=== PATIENT | male | born 1955 | race Caucasian/White ===

== ENCOUNTER 2019-05-20 23:51 | Inpatient (IN) ==
--- NOTE | 2019-05-21 00:22 | ERNOTE ---
Trauma/Assault HPI - General Stated Complaint: lt leg pain/fall Time Seen by Provider: 05/21/19 00:17 Source: patient Exam Limitations: no limitations - Immun/Allergies/Home Medications Immunizations: IMMUNIZATION HX Immunizations Up to Date Yes History of Influenza Vaccine No Allergies/Adverse Reactions: Allergies No Known Allergies Allergy (Verified 05/21/19 00:02) Home Medications: HOME MEDICATIONS aspirin 81 mg tablet,delayed release 81 mg PO DAILY 05/01/18 [Last Taken 09/09/18] ferrous sulfate 325 mg (65 mg iron) tablet 325 mg PO BID 08/24/18 [Last Taken 09/13/18] diflunisal 500 mg tablet 500 mg PO TID #270 tab 02/08/19 [Last Taken Unknown] lisinopril 40 mg tablet 40 mg PO DAILY #90 tab 02/08/19 [Last Taken Unknown] pravastatin 80 mg tablet 80 mg PO HS #90 tab 02/08/19 [Last Taken Unknown] hydrocodone 5 mg-acetaminophen 325 mg tablet 2 tab PO BID PRN #120 tab 05/18/19 [Last Taken Unknown] Omeprazole 40 mg PO DAILY 05/21/19 [Last Taken Unknown] - History of Present Illness Narrative: Patient states he was using his walker with a laundry basket on it and it got away from him he fell on his left side and has pain in the left lateral thigh/hip area. He has not been able to bear weight for more than stand and pivot. Location Occurred: Reports: home Pain Location: Reports: lower extremity Method of Injury: Reports: fall Severity: moderate, severe Modifying Factors - (Improves): Reports: rest Modifying Factors - (Worsens): Reports: movement Loss of Consciousness: Reports: no loss of consciousness Review of Systems - Review of Systems Constitutional: Absent: recent illness ENT: Absent: nose congestion, nasal drainage Respiratory: Absent: shortness of breath Cardiology: Absent: chest pain Gastrointestinal/Abdominal: Absent: nausea, vomiting Genitourinary: Absent: dysuria Musculoskeletal: Present: back pain, muscle pain, muscle stiffness - All chronic for him Skin: Absent: rash Neurological: Present: numbness - Left leg and foot some is chronic for him due to his hereditary spastic paraplegia and some is more recent due to his spinal stenosis Medical History (Last Reviewed 05/21/19 @ 01:17 by Salvatore Bradford DO) Lumbar stenosis (Chronic) Onset Date: 07/01/16 [facility]. MRI report-severe spinal stenosis L2-L3 (moderate to severe) and L4-L5 (mild to moderate). Hypertension (Chronic) Onset Date: Unknown Hyperlipidemia (Chronic) Onset Date: Unknown Hereditary spastic paraplegia (Chronic) Onset Date: 02/27/17 GERD (gastroesophageal reflux disease) (Chronic) Onset Date: Unknown Lives with spouse No history of alcohol use Non-tobacco user Use of cane as ambulatory aid Wears glasses Wears hearing aid in both ears Surgical History: Surgical History (Last Reviewed 05/21/19 @ 01:17 by Salvatore Bradford DO) Status post myelogram Onset Date: ~1978 History of colonoscopy Onset Date: 09/15/182005-wnl. 09/15/18 Toby-normal. Recheck 5 yrs. History of ear surgery Onset Date: ~1963 left History of surgery on arm Onset Date: Unknown Right. History of tonsillectomy Onset Date: ~1963 Family History: Family History (Last Reviewed 05/21/19 @ 01:17 by Salvatore Bradford DO) Father , age 91 Colon cancer dx age 88 Mother , age 74-heart disease Hypertension CVA (cerebral vascular accident) x2 Heart disease quad bypass Sister Cancer colon ca-dx age 70 Sister , age 57-liver disease No problems noted. Brother , age 70-multiple problems Hypertension Diabetes Brother , age 82-unsure of cause No problems noted. Brother Dementia 1 brother Alive and well 2 brothers Social History: (Last Reviewed 05/21/19 @ 01:17 by Salvatore Bradford DO) Social History: Marital status: household members: spouse number of children: 2 current occupational status: disabled current occupational exposures/hazards: No Service: No Tobacco: Smoking Status: Never smoker Alcohol: alcohol intake: never Substance Use: substance use type: does not use Dietary Habits: caffeine: Yes caffeine comment: Current every day Personal Safety: victim of physical abuse: No victim of emotional abuse: No Physical Exam - Physical Exam General Appearance: Present: wd/wn, alert, no apparent distress Head Exam: Present: normal inspection, no evidence of injury Neck: Present: normal inspection, nontender, supple Respiratory: Present: no respiratory distress, no accessory muscle use Back Exam: Present: normal inspection, normal range of motion, no vertebral tenderness Extremity Exam: Present: normal except - - Tenderness along the left lateral thigh/greater trochanter although not specific point tenderness., decreased range of motion - Right thigh. Absent: joint redness, joint swelling, extremity edema Neurological Exam: Present: alert, oriented, normal mood/affect, other - Pt has motor and sensory deficits due to his hereditary spastic parapalegia and lumbar spinal stenosis. Skin Exam: Present: normal color, warm/dry Detailed Trauma Exam Best Eye Response ([place]): (4) open spontaneously Best Verbal Response ([place]): (5) oriented Best Motor Response ([place]): (6) obeys commands [place] Total: 15 - C-Spine cleared by: Neg history & exam - T, L-Spine cleared by: Neg hx and exam Progress - Results and Orders Patient's Lab Results:: I have reviewed the patient's lab results. - Vital Signs Patient's Vital Signs:: I have reviewed the patient's vital signs. Vital Signs: Vital Signs 05/21/19 00:04 Temperature 36.5 C Pulse Rate 87 Respiratory Rate 18 Blood Pressure 166/101 H O2 Sat by Pulse Oximetry 99 - X-Ray X-Ray #1 X-Ray: hip Interpretation: Interp. by me X-ray Comments: Left surgical neck hip fracture. Compressed nonangulated. - Progress/Reassessment Chief Complaint: Fall Progress Note-Subjective: 05/21/19 01:[address] Membreno he asked for the patient be n.p.o. and admitted to medicine with an orthopedics consult. 05/21/19 01:[address] Bustos he agrees with admission. Departure Clinical Impression: Closed hip fracture Qualifiers: Encounter type: initial encounter Laterality: left Qualified Code(s): S72.002A - Fracture of unspecified part of neck of left femur, initial encounter for closed fracture - Departure Disposition: Still a patient Condition: Good Critical Care Time - Critical Care Critical Time Spent:: No
[2019-05-21] MEDS: ONDANSETRON HCL/PF 2 MG/ML VIAL IV PRN ×2 (01:33→08:14)
[2019-05-21] MEDS: MORPHINE SULFATE 2 MG/ML DISP.SYRIN IV PRN ×4 (01:36→11:14)
[2019-05-21] MEDS ORDERED: hydrALAZINE HCL 20 MG/ML VIAL IV STA (02:51)
[2019-05-21 08:48] LABS: Hematocrit 40.6 % (42.0-52.0); Mean Cell Volume 96.2 fl (78-100); Mean Corpuscular Hemoglobin 33.2 pg (27-31); Mean Corpuscular Hgb Conc 34.5 g/dl (32-36); Mean Platelet Volume 9.5 fl (8-11.3); Neutrophil # 5.1 K/mm3 (1.3-6.0); Neutrophil % 67.4 % (42-75.0); Platelet Count 220 K/mm3 (150-450); Red Blood Count 4.22 M/mm3 (4.7-6.0); Red Cell Distribution Width 12.1 % (11.5-14.0); White Blood Count 7.6 K/mm3 (4.0-10.5)
[2019-05-21 08:59] LABS: Albumin * 3.2 gm/dl (3.4-5.0); Anion Gap 13.4 mmol/L (6.8-13.8); BUN/Creatinine Ratio 10.4 (9.0-21.6); Bilirubin, Total 0.4 mg/dL (0.0-1.1); Ca. Corrected For Albumin 9.2 mg/dL (8.4-10.2); Calcium * 8.9 mg/dL (7.9-10.9); Carbon Dioxide 25.4 mmol/L (24-32.6); Potassium 3.8 mmol/L (3.4-4.6); Total Protein 6.9 gm/dL (6.2-8.2)
[2019-05-21] MEDS ORDERED: ceFAZolin SODIUM 1 GM VIAL IV PRN (09:01)
--- NOTE | 2019-05-21 09:01 | CONS ---
[facility] - General Date of Service: 05/21/19 Narrative: Mr. Christy is a 64-year-old gentleman with spastic luis-plegia who was at home carrying a laundry basket when he fell onto his left side resulting in left hip pain. He was unable to weight-bear and was seen in the emergency department which time was found to have a nondisplaced closed left femoral neck fracture. He denies any other areas of pain. he denies any previous hip pathology. He states he walks with a walker at home. His assists him and he does limited ambulating during the day. Source: patient, RN/MD Exam Limitations: no limitations - History of Present Illness Timing/Duration: 24 hours Severity: mild Modifying Factors - (Worsens): Reports: movement Modifying Factors - (Improves): Reports: immobilization Associated Symptoms: denies symptoms Allergies/Adverse Reactions: Allergies No Known Allergies Allergy (Verified 05/21/19 00:02) Home Medications: Home Medications Medication Instructions Recorded Last Taken aspirin 81 mg tablet,delayed 81 mg PO DAILY 05/01/18 05/20/19 release ferrous sulfate 325 mg (65 mg 325 mg PO BID 08/24/18 05/20/19 17:00 iron) tablet diflunisal 500 mg tablet 500 mg PO TID #270 tab 02/08/19 Unknown lisinopril 40 mg tablet 40 mg PO DAILY #90 tab 02/08/19 05/20/19 pravastatin 80 mg tablet 80 mg PO HS #90 tab 02/08/19 05/19/19 hydrocodone 5 mg-acetaminophen 325 2 tab PO BID PRN #120 tab 05/18/19 05/20/19 12:00 mg tablet Omeprazole 40 mg PO DAILY 05/21/19 05/20/19 09:00 Medications - Medications Current Medications: Current Medications Morphine Sulfate (Morphine Sulfate) 2 mg IV Q1H PRN PRN Reason: Pain Stop: 06/20/19 01:31 Last Admin: 05/21/19 08:13 Dose: 2 mg Documented by: Ondansetron HCl (Zofran) 4 mg IV Q4H PRN PRN Reason: Nausea Stop: 06/20/19 01:31 Last Admin: 05/21/19 08:14 Dose: 4 mg Documented by: Review of Systems - Review of Systems Narrative: As above Physical Examination - Exam Narrative: Left lower extremity: No lacerations or abrasions. Sensation is decreased but stable, thigh is soft, pain with any hip range of motion, is able to flex and extend his toes to his reported baseline level. Palpable dorsalis pedis pulse Vital Signs: Vital Signs - Last Taken Temp 37.3 C 05/21/19 06:18 Pulse 84 05/21/19 06:18 Resp 16 05/21/19 06:18 BP 139/73 05/21/19 06:18 Pulse Ox 97 05/21/19 06:18 O2 Oxygen Delivery Method Room Air - Results and Findings: Narrative: AP pelvis 2 views left hip: Minimally impacted valgus nondisplaced left femoral neck fracture, no other pelvic fracture or advanced arthrosis. Lab/Microbiology results last 24 hrs: Abnormal/Pending Laboratory Last 24 HRS 05/21/19 08:44 RBC 4.22 L Hct 40.6 L MCH 33.2 H Monocytes % 9.4 H - Assessments/Findings (1) Closed hip fracture Diagnosis(s): Plan is for closed reduction percutaneous fixation of the left hip. He will receive IV Ancef preoperatively and will need 6 weeks of DVT prophylaxis postoperatively. As long as he is medically sound undergo this procedure the plan is to go this morning. Consent will be obtained. Problem: Acute Qualifiers: Encounter type: initial encounter Laterality: left Qualified Code(s): S72.002A - Fracture of unspecified part of neck of left femur, initial encounter for closed fracture
--- NOTE | 2019-05-21 09:41 | HP ---
Chief Complaint - Chief Complaint Date of Service: 05/21/19 Time of Service: 08:30 Chief Complaint: Left Hip pain after fall History of Present Illness: Ayo is a 64 yo male with significant PMH of Hereditary Spastic Paraplegia, lumbar spinal stenosis, hypertension, and hyperlipidemia. He has been in his usual state of health at home when he made the error of doing the laundry. While leaning over the laundry basket he lost his balance which is not unusual for him with his chronic spastic paraplegia. He fell and landed on his left hip and immediately had severe pain and was unable to get off the floor. He was able to get to a phone and was able to get assistance after about an hour of laying on the floor. He was helped up and brought to the [facility] ER. He denies any other medical changes. He specifically denies chest pain, shortness of breath, or lightheadedness. No recent illnesses. No recent change in medication. In the ER he had hip imaging that shows minimally displaced and impacted left femoral neck fracture. Chest xray shows no acute change. He had no labs or EKG in the ER. Medical History (Last Reviewed 05/21/19 @ 06:46 by Isis Santana RN) Lumbar stenosis (Chronic) Onset Date: 07/01/16 [facility]. MRI report-severe spinal stenosis L2-L3 (moderate to severe) and L4-L5 (mild to moderate). Hypertension (Chronic) Onset Date: Unknown Hyperlipidemia (Chronic) Onset Date: Unknown Hereditary spastic paraplegia (Chronic) Onset Date: 02/27/17 GERD (gastroesophageal reflux disease) (Chronic) Onset Date: Unknown Lives with spouse No history of alcohol use Non-tobacco user Use of cane as ambulatory aid Wears glasses Wears hearing aid in both ears Surgical History: Surgical History (Last Reviewed 05/21/19 @ 06:46 by Isis Santana RN) Status post myelogram Onset Date: ~1978 History of colonoscopy Onset Date: 09/15/18 2006-wnl. 09/15/18 Toby-normal. Recheck 5 yrs. History of ear surgery Onset Date: ~1963 left History of surgery on arm Onset Date: Unknown Right. History of tonsillectomy Onset Date: ~1963 Family History: Family History (Last Reviewed 05/21/19 @ 06:46 by Isis Santana RN) Father , age 91 Colon cancer dx age 88 Mother , age 74-heart disease Hypertension CVA (cerebral vascular accident) x2 Heart disease quad bypass Sister Cancer colon ca-dx age 70 Sister , age 57-liver disease No problems noted. Brother , age 70-multiple problems Hypertension Diabetes Brother , age 82-unsure of cause No problems noted. Brother Dementia 1 brother Alive and well 2 brothers Social History: (Last Reviewed 05/21/19 @ 06:46 by Isis Santana RN) Social History: Marital status: household members: spouse number of children: 2 current occupational status: disabled current occupational exposures/hazards: No Service: No Tobacco: Smoking Status: Never smoker Alcohol: alcohol intake: never Substance Use: substance use type: does not use Dietary Habits: caffeine: Yes caffeine comment: Current every day Personal Safety: victim of physical abuse: No victim of emotional abuse: No Review Of Systems (GEN) - Review of Systems Generalized/Overall Review: Present: Weakness - chronic lower extremity weakness. Absent: Chills, Fever EENTM: Present: No Symptoms Reported Respiratory: Absent: Cough, Shortness of Breath Cardiac: Absent: Chest Pain, Edema, Palpitations, Syncope Abdominal: Absent: Nausea, Vomiting, Hematemesis, Abdominal Pain, Constipation, Diarrhea Genitourinary: Present: No Symptoms Reported Musculoskeletal: Present: Joint Pain, Back Pain - Left hip Neurological: Present: Numbness - left ankle region (chronic), Weakness Skin: Present: No Symptoms Reported Endocrine: Present: No Symptoms Reported Immunizations: IMMUNIZATION HX Immunizations Up to Date Yes History of Influenza Vaccine No Allergies/Adverse Reactions: Allergies Allergy/AdvReac Type Severity Reaction Status Date / Time No Known Allergies Allergy Verified 05/21/19 00:02 Home Medications: HOME MEDICATIONS aspirin 81 mg tablet,delayed release 81 mg PO DAILY 05/01/18 [Last Taken 05/20/19] ferrous sulfate 325 mg (65 mg iron) tablet 325 mg PO BID 08/24/18 [Last Taken 05/20/19 17:00] diflunisal 500 mg tablet 500 mg PO TID #270 tab 02/08/19 [Last Taken Unknown] lisinopril 40 mg tablet 40 mg PO DAILY #90 tab 02/08/19 [Last Taken 05/20/19] pravastatin 80 mg tablet 80 mg PO HS #90 tab 02/08/19 [Last Taken 05/19/19] hydrocodone 5 mg-acetaminophen 325 mg tablet 2 tab PO BID PRN #120 tab 05/18/19 [Last Taken 05/20/19 12:00] Omeprazole 40 mg PO DAILY 05/21/19 [Last Taken 05/20/19 09:00] Exam - Exam Vital Signs: Vital Signs - Last Taken Temp 37.3 C 05/21/19 06:18 Pulse 84 05/21/19 06:18 Resp 16 05/21/19 06:18 BP 139/73 05/21/19 06:18 Pulse Ox 97 05/21/19 06:18 Constitutional: Present: Alert, Oriented x3, Cooperative, No distress ENT Exam: Present: hearing grossly normal - with hearing aid assistance Eye Exam: bilateral eye: normal inspection Respiratory: Present: lungs clear, normal breath sounds Cardiovascular/Chest: Present: regular rate, rhythm, no murmur Peripheral Pulses: radial (R): 2+, radial (L): 2+ Abdomen: Present: Normal bowel sounds, soft, nontender, nondistended, no rebound tenderness, no hepatospenomegaly Extremity: Present: other - legs thin with mild contraction Skin Exam: Present: normal color, warm/dry, no cyanosis Lymphatic: Present: no adenopathy Appearance: Present: appropriate insight Eye contact: Present: cooperative, good eye contact, normal speech Thoughts: Present: normal thought pattern, no apparent hallucination Diagnostic Studies: Abnormal Lab Results 05/21/19 05/21/19 Range/Units 08:44 08:44 RBC 4.22 L (4.7-6.0) M/mm3 Hct 40.6 L (42.0-52.0) % MCH 33.2 H (27-31) pg Monocytes % 9.4 H (0.0-9) % ALT 18 L (19-67) U/L Albumin 3.2 L (3.4-5.0) gm/dl Laboratory Results WBC 7.6 K/mm3 (4.0-10.5) 05/21/19 08:44 RBC 4.22 M/mm3 (4.7-6.0) L 05/21/19 08:44 Hgb 14.0 gm/dL (13.5-18.0) 05/21/19 08:44 Hct 40.6 % (42.0-52.0) L 05/21/19 08:44 MCV 96.2 fl (78-100) 05/21/19 08:44 MCH 33.2 pg (27-31) H 05/21/19 08:44 MCHC 34.5 g/dl (32-36) 05/21/19 08:44 RDW 12.1 % (11.5-14.0) 05/21/19 08:44 Plt Count 220 K/mm3 (150-450) 05/21/19 08:44 MPV 9.5 fl (8-11.3) 05/21/19 08:44 Immature Gran % (Auto) 0.10 % (0.001-0.429) 05/21/19 08:44 Immature Gran # (Auto) 0.01 K/mm3 (0.000-0.0310) 05/21/19 08:44 Neutrophils % 67.4 % (42-75.0) 05/21/19 08:44 Lymphocytes % 22.3 % (20-51) 05/21/19 08:44 Monocytes % 9.4 % (0.0-9) H 05/21/19 08:44 Eosinophils % 0.4 % (0.0-3.0) 05/21/19 08:44 Basophils % 0.4 % (0.0-1.0) 05/21/19 08:44 Nucleated RBC % 0.0 k/mm3 (0-1) 05/21/19 08:44 Neutrophils # 5.1 K/mm3 (1.3-6.0) 05/21/19 08:44 Lymphocytes # 1.70 k/mm3 (1.5-3.5) 05/21/19 08:44 Monocytes # 0.7 k/mm3 (0.0-1.0) 05/21/19 08:44 Eosinophils # 0.0 k/mm3 (0.0-0.7) 05/21/19 08:44 Absolute Basophils 0.0 k/mm3 (0.0-0.1) 05/21/19 08:44 Sodium 139 mmol/L (132-142) 05/21/19 08:44 Plasma Sodium 139 mmol/L (130-142) 05/21/19 08:44 Potassium 3.8 mmol/L (3.4-4.6) 05/21/19 08:44 Chloride 104 mmol/L (97-106) 05/21/19 08:44 Carbon Dioxide 25.4 mmol/L (24-32.6) 05/21/19 08:44 Anion Gap 13.4 mmol/L (6.8-13.8) 05/21/19 08:44 BUN 10 mg/dL (6-23) 05/21/19 08:44 Creatinine 0.96 mg/dL (0.4-1.4) 05/21/19 08:44 Est GFR (Non-Af Amer) 84 mL/min (60-130) 05/21/19 08:44 BUN/Creatinine Ratio 10.4 (9.0-21.6) 05/21/19 08:44 Random Glucose 101 mg/dL (70-110) 05/21/19 08:44 Calcium 8.9 mg/dL (7.9-10.9) 05/21/19 08:44 Calcium Adj for Albumin 9.2 mg/dL (8.4-10.2) 05/21/19 08:44 Total Bilirubin 0.4 mg/dL (0.0-1.1) 05/21/19 08:44 AST 17 U/L (0-48) 05/21/19 08:44 ALT 18 U/L (19-67) L 05/21/19 08:44 Alkaline Phosphatase 53 U/L (50-170) 05/21/19 08:44 Total Protein 6.9 gm/dL (6.2-8.2) 05/21/19 08:44 Albumin 3.2 gm/dl (3.4-5.0) L 05/21/19 08:44 Assessment/Plan - Narrative Narrative: Alexis is a 64 yo male with hereditary spastic paraplegia and chronic lumbar spinal stenosis with a left femoral neck fracture following a fall. He lost his balance while leaning over the laundry basket. He has been examined for cardiovascular clearance and I see no medical reasons that would contraindicate the need for surgery. Orthopedics have been consulted by the ER and will plan on doing surgery later this morning. Patient was evaluated for pre-operative risks. Based on Revised Cardiovascular Risk Index he has a risk of 1% for cardiovascular event. I feel he is medically cleared for surgery. Due to his spastic paraplegia, he even more so than typical hip fracture patients, will ne ed physical therapy. - Assessment/Plan (1) Closed hip fracture Problem: Acute Qualifiers: Encounter type: initial encounter Laterality: left Qualified Code(s): S72.002A - Fracture of unspecified part of neck of left femur, initial encounter for closed fracture (2) Lumbar stenosis Problem: Chronic Qualifiers: Neurogenic claudication status: unspecified Qualified Code(s): M48.061 - Spinal stenosis, lumbar region without neurogenic claudication (3) Hypertension Problem: Chronic (4) Hereditary spastic paraplegia Problem: Chronic
--- NOTE | 2019-05-21 10:25 | ANES ---
Anesthesia Pre Procedure Eval Vitals/Labs: Last Vital Signs Temp 37.3 C 05/21/19 06:18 Pulse 84 05/21/19 06:18 Resp 16 05/21/19 06:18 BP 139/73 05/21/19 06:18 Pulse Ox 97 05/21/19 06:18 HOME MEDICATIONS aspirin 81 mg tablet,delayed release 81 mg PO DAILY 05/01/18 [Last Taken 05/20/19] ferrous sulfate 325 mg (65 mg iron) tablet 325 mg PO BID 08/24/18 [Last Taken 05/20/19 17:00] diflunisal 500 mg tablet 500 mg PO TID #270 tab 02/08/19 [Last Taken Unknown] lisinopril 40 mg tablet 40 mg PO DAILY #90 tab 02/08/19 [Last Taken 05/20/19] pravastatin 80 mg tablet 80 mg PO HS #90 tab 02/08/19 [Last Taken 05/19/19] hydrocodone 5 mg-acetaminophen 325 mg tablet 2 tab PO BID PRN #120 tab 05/18/19 [Last Taken 05/20/19 12:00] Omeprazole 40 mg PO DAILY 05/21/19 [Last Taken 05/20/19 09:00] Allergies/Adverse Reactions: Allergies Allergy/AdvReac Type Severity Reaction Status Date / Time No Known Allergies Allergy Verified 05/21/19 00:02 - Planned Procedure Planned Procedure: Left Hip Fracture Medication List Reviewed:: Yes Allergies Verified: Yes Medical History (Last Reviewed 05/21/19 @ 10:24 by Matias Benitez CRNA) Lumbar stenosis (Chronic) Onset Date: 07/01/16 [facility]. MRI report-severe spinal stenosis L2-L3 (moderate to severe) and L4-L5 (mild to moderate). Hypertension (Chronic) Onset Date: Unknown Hyperlipidemia (Chronic) Onset Date: Unknown Hereditary spastic paraplegia (Chronic) Onset Date: 02/27/17 GERD (gastroesophageal reflux disease) (Chronic) Onset Date: Unknown Lives with spouse No history of alcohol use Non-tobacco user Use of cane as ambulatory aid Wears glasses Wears hearing aid in both ears Surgical History (Last Reviewed 05/21/19 @ 10:24 by Matias Benitez CRNA) Status post myelogram Onset Date: ~1978 History of colonoscopy Onset Date: 09/15/182005-wnl. 09/15/18 Toby-normal. Recheck 5 yrs. History of ear surgery Onset Date: ~1963 left History of surgery on arm Onset Date: Unknown Right. History of tonsillectomy Onset Date: ~1963 Family History (Last Reviewed 05/21/19 @ 10:24 by Matias Benitez CRNA) Father , age 91 Colon cancer dx age 88 Mother , age 74-heart disease Hypertension CVA (cerebral vascular accident) x2 Heart disease quad bypass Sister Cancer colon ca-dx age 70 Sister , age 57-liver disease No problems noted. Brother , age 70-multiple problems Hypertension Diabetes Brother , age 82-unsure of cause No problems noted. Brother Dementia 1 brother Alive and well 2 brothers - Family Anesthesia History Family History:: no untoward family reactions to anesthesia, no familial bleeding tendencies, no family history of clotting disorders, no family history of premature - Airway/Neck/Teeth Within Normal Limits:: Yes Teeth Condition: missing Mallampatti Score: 2 Thyromental (T-M) distance: > 6 cm Mandibulo Hyoid distance: > 3 cm - Respiratory Respiratory Physical: lungs clear Smoking Status: Former smoker Discussed smoking cessation including day of surgery: No Sleep Apnea currently treated: No Sleep Apnea by current assessment: No Discussed Risks/Treatment of CHARITY: No - Cardiovascular Tolerate Activity: Good Heart Sounds: S1 & S2, Regular - Gastrointestinal NPO since: mn - Anesthesia Assessment and Plan ASA Class: PS, II Anesthesia Type Plan: Spinal
[2019-05-21] MEDS: NORMAL SALINE 1,000 ML IV PRN ×2 (11:20→17:28)
[2019-05-21] MEDS: RINGER'S SOLUTION,LACTATED 1,000 ML IV PRN ×2 (11:30→12:45)
[2019-05-21] MEDS ORDERED: LIDOCAINE HCL 20 ML VIAL ONE (11:35)
[2019-05-21] MEDS ORDERED: fentaNYL CITRATE/PF 50 MCG/ML AMPUL ONE (11:35)
[2019-05-21] MEDS ORDERED: ONDANSETRON HCL/PF 2 MG/ML VIAL ONE (11:35)
[2019-05-21] MEDS ORDERED: PROPOFOL VIAL IV ONE (11:35)
[2019-05-21] MEDS ORDERED: ceFAZolin SODIUM 1 GM VIAL ONE (11:42)
[2019-05-21] MEDS ORDERED: MORPHINE SULFATE 2 MG/ML DISP.SYRIN IV PRN (13:05)
[2019-05-21] MEDS ORDERED: MAGNESIUM HYDROXIDE 30 ML UDC PO PRN (13:05)
[2019-05-21] MEDS ORDERED: MAG HYDROX/ALUMINUM HYD/SIMETH 30 ML UDC PO PRN (13:05)
[2019-05-21] MEDS ORDERED: ACETAMINOPHEN 500 MG TABLET PO PRN (13:05)
[2019-05-21] MEDS ORDERED: ZOLPIDEM TARTRATE 5 MG TABLET PO PRN (13:05)
--- NOTE | 2019-05-21 13:05 | OR ---
Operative Report - Dictated Report Narrative: Date: 05/21/2019 Surgeon: Braeden Booth M.D. Juvenile Detention Officer: Rufus Roa PA-C Preoperative diagnosis: Closed left nondisplaced femoral neck fracture Postoperative diagnosis:Closed left nondisplaced femoral neck fracture Operations and procedures: 1. Percutaneous fixation left nondisplaced femoral neck fracture 2. Intraoperative interpretation of radiographs Anesthesia: Spinal Specimens: None Estimated blood loss: 50 mL Retained implants: [employer] 7.3 millimeter 32 millimeter threads cannulated screws 85, 90, 90 millimeter lengths, 2 washers Complications: None Indications for procedure: Mr. Christy is a 64-year-old gentleman who injured the left hip after ground- level fall at home. He was admitted to the hospital after being evaluated in the emergency department. Once the medical provider felt that they were stable for surgical treatment, the risks and benefits alternatives were discussed. The risks of , blood clots, bleeding, infection, nerve/tendon/blood vessel injury, malunion, nonunion, failure of implants, painful implants, arthrosis, and need for additional procedures were discussed. The extremity was marked and consent was obtained on the floor. Procedure: After marking the operative extremity on the floor, the patient was taken to the operating room. A timeout was performed. IV antibiotics consisting of Ancef were administered. A spinal anesthetic was induced by anesthesia, and the patient was then placed onto a fracture table with a well-padded perineal post. The nonoperative leg was placed in a well-padded traction boot in slight extension without any traction with an SCD on the leg. The operative leg was pl aced in a well-padded traction boot. No traction or manipulation was performed. Preliminary images were attained utilizing C-arm in both the AP and lateral views. This confirmed that we had obtained adequate visualization of the fracture as well as reduction. Next the hip was then prepped and draped in a standard sterile fashion. Next three guidewires were placed percutaneously in an inverted triangle fashion. The inferior screws placed centered on the lateral view and along the inferior neck cortex on the AP view. The 2 superior screws were placed along the anterior and posterior cortex on the lateral view and along the inferior portion of the superior cortex on the AP in order to obtain as long of screws as possible. This was done with a starting point above the level of the lesser trochanter. C-arm was utilized in order to confirm the placement and to ensure that the tips of the guidewires were not penetrating the joint. The screws were then measured, the outer cortex was drilled, and the 3 screws were placed securing them to the bone on the lateral aspect providing fixation across the fracture. C-arm was again utilized to ensure that the screws were not into the joint and that they stabilized the fracture. The 85 mm screw was placed anteriorly and the 90 mm screws were placed posteriorly and inferiorly with washers. The wounds were then thoroughly irrigated. Final images were obtained. The hip was placed through range of motion and showed no crepitance. The subcutaneous tissue with 3-0 Vicryl, and the skin was closed with suhail. Sterile dressings of Xeroform, 4 x 4, and Tegaderm were applied. All sponge, sharp, and instrument counts were correct prior to closing the wounds. The patient was then awoken and transferred to the postanesthesia care unit in stable condition.
--- NOTE | 2019-05-21 13:29 | ANES ---
Post Anesthesia Assessment - Vital Signs Vitals: Last Vital Signs Temp 37.1 C 05/21/19 10:28 Pulse 82 05/21/19 10:28 Resp 18 05/21/19 10:28 BP 130/78 05/21/19 10:28 Pulse Ox 97 05/21/19 10:28 Airway Patency: Normal - Mental Status Level Of Consciousness: Awake - Pain Level Pain Score: 0 - N/V Assessment Nausea/Vomiting Presence: None Dehydration:: No
--- NOTE | 2019-05-21 13:29 | ANES ---
Post Anesthesia Discharge - Transfer of Care Transfer of Care handoff given to nurse: Yes - Discharge from PACU Discharge from PACU when meets criteria: Yes - Discharge to ASU Discharge to ASU-no complications/pt stable: Yes
[2019-05-21] MEDS: ceFAZolin SODIUM 1 GM in DEXTROSE 5 % IN WATER 50 ML IV SCH ×4 (14:06→20:59)
[2019-05-21] MEDS: HYDROcodone/ACETAMINOPHEN 1 EACH TABLET PO PRN (19:46)
[2019-05-21] MEDS: SENNOSIDES/DOCUSATE SODIUM 1 TAB TABLET PO SCH (20:58)
[2019-05-22] MEDS: HYDROcodone/ACETAMINOPHEN 1 EACH TABLET PO PRN ×5 (01:03→18:24)
[2019-05-22] MEDS: NORMAL SALINE 1,000 ML IV PRN (01:16)
[2019-05-22] MEDS: ceFAZolin SODIUM 1 GM in DEXTROSE 5 % IN WATER 50 ML IV SCH ×2 (02:59)
[2019-05-22 05:56] LABS: Hematocrit 33.1 % (42.0-52.0); Mean Cell Volume 98.2 fl (78-100); Mean Corpuscular Hemoglobin 32.6 pg (27-31); Mean Corpuscular Hgb Conc 33.2 g/dl (32-36); Mean Platelet Volume 9.4 fl (8-11.3); Platelet Count 170 K/mm3 (150-450); Red Blood Count 3.37 M/mm3 (4.7-6.0); Red Cell Distribution Width 12.3 % (11.5-14.0); White Blood Count 5.6 K/mm3 (4.0-10.5)
[2019-05-22 06:05] LABS: Anion Gap 10.1 mmol/L (6.8-13.8); BUN/Creatinine Ratio 13.6 (9.0-21.6); Calcium * 8.4 mg/dL (7.9-10.9); Carbon Dioxide 25.8 mmol/L (24-32.6); Estimated Creat Clear 75.7; Potassium 3.9 mmol/L (3.4-4.6)
--- NOTE | 2019-05-22 08:21 | PN ---
Subjective - Date and Time Seen Date: 05/22/19 Time: 08:17 Subjective Narrative: Patient reports he is getting along well. Pain is controlled. Has no specific complaints. Was able to get up to a chair this morning and ate breakfast. Objective Objective Narrative: Patient is up in chair alert oriented cooperative exam. He is in no distress. Examination of dressings are clean dry and intact. Left lower extremity he repo rts numbness but he states that this is chronic due to his neurologic disorder. His calf is supple. Vital signs are stable. Labs reviewed hemoglobin at 11.0 g down from 14.0 g. - Vitals Vitals: Last Vital Signs Temp 37.2 C 05/22/19 07:00 Pulse 79 05/22/19 07:00 Resp 20 05/22/19 07:00 BP 136/84 05/22/19 07:00 Pulse Ox 93 05/22/19 07:00 - Abnormal Lab Findings Abnormal Lab Findings: Abnormal Lab Results 05/21/19 05/21/19 05/22/19 Range/Units 08:44 08:44 05:50 RBC 4.22 L 3.37 L (4.7-6.0) M/mm3 Hgb 11.0 L (13.5-18.0) gm/dL Hct 40.6 L 33.1 L (42.0-52.0) % MCH 33.2 H 32.6 H (27-31) pg Monocytes % 9.4 H (0.0-9) % Chloride (97-106) mmol/L ALT 18 L (19-67) U/L Albumin 3.2 L (3.4-5.0) gm/dl 05/22/19 Range/Units 05:50 RBC (4.7-6.0) M/mm3 Hgb (13.5-18.0) gm/dL Hct (42.0-52.0) % MCH (27-31) pg Monocytes % (0.0-9) % Chloride 109 H (97-106) mmol/L ALT (19-67) U/L Albumin (3.4-5.0) gm/dl - Exam Constitutional: Present: Alert, Oriented x3, Cooperative, No distress Cauti Physician Documentation - Urinary Catheter Management Urethral (Rinaldi) Date of Insertion: 05/21/19 Time of Insertion: 02:30 Assessment/Plan - Problems/Diagnosis (1) Acute blood loss anemia Problem: Acute Narrative: Vital signs are stable, patient is asymptomatic, some of this could be dilutional, will observe clinically. (2) Closed hip fracture Problem: Acute Qualifiers: Encounter type: initial encounter Laterality: left Qualified Code(s): S72.002A - Fracture of unspecified part of neck of left femur, initial encounter for closed fracture Narrative: Postop day 1 percutaneous screw fixation. At this time patient's pain is controlled. He will work with physical therapy for progressive mobility. Anticoagulation. (3) Hypertension Problem: Chronic (4) Hyperlipidemia Problem: Chronic (5) Hereditary spastic paraplegia Problem: Chronic
--- NOTE | 2019-05-22 09:38 | PN ---
Subjective - Date and Time Seen Date: 05/22/19 Time: 09:38 Subjective Narrative: He reports feeling ok this morning. He feels his pain is reasonably managed, and he gives it a 6-7. Objective - Review of Systems Generalized/Overall Review: Denies: Fever Respiratory: Denies: Shortness of Breath Cardiac: Denies: Chest Pain, Edema Abdominal: Reports: Vomiting Genitourinary Symptoms: Reports: No Symptoms Reported Musculoskeletal Complaints: Reports: Joint Pain - left hip Neurological: Reports: Numbness - left foot, baseline - Vitals Vitals: Last Vital Signs Temp 37.2 C 05/22/19 07:00 Pulse 79 05/22/19 07:00 Resp 20 05/22/19 07:00 BP 136/84 05/22/19 07:00 Pulse Ox 93 05/22/19 07:00 - Abnormal Lab Findings Abnormal Lab Findings: Abnormal Lab Results 05/22/19 05/22/19 Range/Units 05:50 05:50 RBC 3.37 L (4.7-6.0) M/mm3 Hgb 11.0 L (13.5-18.0) gm/dL Hct 33.1 L (42.0-52.0) % MCH 32.6 H (27-31) pg Chloride 109 H (97-106) mmol/L - Exam Constitutional: Present: Alert, Cooperative, No distress Respiratory: Present: lungs clear, normal breath sounds Cardiovascular/Chest: Present: regular rate, rhythm Abdomen: Present: soft. Absent: nontender Extremity: Absent: lower extremity edema Eye contact: Present: cooperative Cauti Physician Documentation - Urinary Catheter Management Urethral (Rinaldi) Date of Insertion: 05/21/19 Time of Insertion: 02:30 Assessment/Plan - Problems/Diagnosis (1) Closed hip fracture Problem: Acute Qualifiers: Encounter type: initial encounter Laterality: left Qualified Code(s): S72.002A - Fracture of unspecified part of neck of left femur, initial encounter for closed fracture Narrative: POD #1 surgical fixation of nondisplaced left femoral neck fracture. He feels like pain is appropriately controlled with norco. He was able to work with PT. He was uo to the chair this morning. He will be going to the [facility] after DC, likely Friday. (2) Acute blood loss anemia Problem: Acute Narrative: Hgb pre-op was 14.0, and was 11.0 today, which is to be expected after surgery. He does not report signs of bleeding, but had questions about the need for the blood draw. No further labs needed unless his condition changes. (3) Lumbar stenosis Problem: Chronic Qualifiers: Neurogenic claudication status: unspecified Qualified Code(s): M48.061 - Spinal stenosis, lumbar region without neurogenic claudication Narrative: He reports being established with neurology for many years. Left foot drop developed in the last few months, and led to his fall and hip fracture. No acute mgt needed this hospitalization. (4) Hypertension Problem: Chronic Narrative: BP appropriate. Continue 40 mg lisinopril. (5) Hyperlipidemia Problem: Chronic (6) Hereditary spastic paraplegia Problem: Chronic (7) GERD (gastroesophageal reflux disease) Problem: Chronic
[2019-05-22] MEDS: RIVAROXABAN 20 MG TABLET PO SCH (10:02)
[2019-05-22] MEDS: LISINOPRIL 40 MG TABLET PO SCH (10:02)
[2019-05-22] MEDS: PANTOPRAZOLE SODIUM 40 MG TABLET.EC PO SCH (10:02)
[2019-05-22] MEDS: ROSUVASTATIN CALCIUM 10 MG TABLET PO SCH (20:49)
[2019-05-22] MEDS: SENNOSIDES/DOCUSATE SODIUM 1 TAB TABLET PO SCH (20:49)
[2019-05-23] MEDS: HYDROcodone/ACETAMINOPHEN 1 EACH TABLET PO PRN ×4 (01:02→21:38)
[2019-05-23] MEDS: LISINOPRIL 40 MG TABLET PO SCH (08:04)
[2019-05-23] MEDS: PANTOPRAZOLE SODIUM 40 MG TABLET.EC PO SCH (08:04)
[2019-05-23] MEDS: RIVAROXABAN 20 MG TABLET PO SCH (08:04)
--- NOTE | 2019-05-23 11:12 | PN ---
Subjective - Date and Time Seen Date: 05/23/19 Time: 09:30 Subjective Narrative: Patient reports feeling fine this morning. No new concerns. He is ambulating with his walker. Objective - Review of Systems Generalized/Overall Review: Denies: Fever Respiratory: Denies: Shortness of Breath Cardiac: Denies: Chest Pain, Edema Abdominal: Denies: Vomiting, Constipation Genitourinary Symptoms: Reports: No Symptoms Reported Musculoskeletal Complaints: Reports: Joint Pain - left hip Neurological: Reports: Pre-existing Deficit - Left foot numbness - Vitals Vitals: Last Vital Signs Temp 37.4 C 05/23/19 07:00 Pulse 66 05/23/19 08:04 Resp 20 05/23/19 07:00 BP 145/84 05/23/19 08:04 Pulse Ox 97 05/23/19 07:00 - Exam Constitutional: Present: Alert, Cooperative, No distress Respiratory: Present: lungs clear, normal breath sounds, no respiratory distress Cardiovascular/Chest: Present: regular rate, rhythm Abdomen: Present: soft, nontender Extremity: Absent: lower extremity edema Neurologic: Present: normal mood/affect, sensory deficit - left foot Eye contact: Present: cooperative, good eye contact Cauti Physician Documentation - Urinary Catheter Management Urethral (Rinaldi) Date of Insertion: 05/21/19 Time of Insertion: 02:30 Assessment/Plan - Problems/Diagnosis (1) Closed hip fracture Problem: Acute Qualifiers: Encounter type: initial encounter Laterality: left Qualified Code(s): S72.002A - Fracture of unspecified part of neck of left femur, initial encounter for closed fracture Narrative: POD #2 surgical fixation of nondisplaced left femoral neck fracture, after a ground-level fall at home. Pain is appropriately controlled with norco, which he is using about every 7 hours. He is working with PT, and is aware of how to use the walker and his stronger right leg to ambulate. Likely DC to the [facility] tomorrow. (2) Acute blood loss anemia Problem: Acute Narrative: Hgb pre-op was 14.0, and was 11.0 05/22/19 which is to be expected after surgery. He is not significantly anemic, and further blood draws are not needed unless his condition changes. (3) Lumbar stenosis Problem: Chronic Qualifiers: Neurogenic claudication status: unspecified Qualified Code(s): M48.061 - Spinal stenosis, lumbar region without neurogenic claudication (4) Hypertension Problem: Chronic Narrative: Controlled with home 40 mg losartan. (5) Hyperlipidemia Problem: Chronic (6) Hereditary spastic paraplegia Problem: Chronic (7) GERD (gastroesophageal reflux disease) Problem: Chronic
[2019-05-23] MEDS: ROSUVASTATIN CALCIUM 10 MG TABLET PO SCH (21:38)
[2019-05-23] MEDS: SENNOSIDES/DOCUSATE SODIUM 1 TAB TABLET PO SCH (21:38)
[2019-05-24] MEDS: HYDROcodone/ACETAMINOPHEN 1 EACH TABLET PO PRN ×3 (04:14→13:45)
[2019-05-24] MEDS: PANTOPRAZOLE SODIUM 40 MG TABLET.EC PO SCH (08:06)
[2019-05-24] MEDS: RIVAROXABAN 20 MG TABLET PO SCH (08:07)
[2019-05-24] MEDS: LISINOPRIL 40 MG TABLET PO SCH (08:07)
--- NOTE | 2019-05-24 13:11 | DS ---
(1) Closed hip fracture Problem: Acute Qualifiers: Encounter type: initial encounter Laterality: left Qualified Code(s): S72.002A - Fracture of unspecified part of neck of left femur, initial encounter for closed fracture (2) Lumbar stenosis Problem: Chronic Qualifiers: Neurogenic claudication status: unspecified Qualified Code(s): M48.061 - Spinal stenosis, lumbar region without neurogenic claudication (3) Hypertension Problem: Chronic (4) Hereditary spastic paraplegia Problem: Chronic Date of Discharge:: 05/24/19 Hospital Course: Ayo is a 64 yo male with hereditary spastic paraplegia and lumbar spinal stenosis who fell at home while doing the laundry. He fractured his left hip at the femoral neck which was minimally displaced and impacted. He was preoperatively cleared by medicine and underwent Percutaneous fixation of the left nondisplaced femoral neck fracture on 05/21/19. He did well postoperatively and worked with therapy. He was doing well and ready for discharge on 05/24/19. His only concern was no bowel movement since surgery, but was given an enema prior to discharge. Procedures Performed: see notes below List Procedures: Operations and procedures: 1. Percutaneous fixation left nondisplaced femoral neck fracture 05/21/19 Results and Findings: Lab Pending Results 05/21/19 08:44: WBC 7.6, RBC 4.22 L, Hgb 14.0, Hct 40.6 L, MCV 96.2, MCH 33.2 H, MCHC 34.5, RDW 12.1, Plt Count 220, MPV 9.5, Immature Gran % (Auto) 0.10, Immature Gran # (Auto) 0.01, Neutrophils % 67.4, Lymphocytes % 22.3, Monocytes % 9.4 H, Eosinophils % 0.4, Basophils % 0.4, Nucleated RBC % 0.0, Neutrophils # 5.1, Lymphocytes # 1.70, Monocytes # 0.7, Eosinophils # 0.0, Absolute Basophils 0.0 05/21/19 08:44: Sodium 139, Plasma Sodium 139, Potassium 3.8, Chloride 104, Carbon Dioxide 25.4, Anion Gap 13.4, BUN 10, Creatinine 0.96, Est GFR (Non-Af Amer) 84, BUN/Creatinine Ratio 10.4, Random Glucose 101, Calcium 8.9, Calcium Adj for Albumin 9.2, Total Bilirubin 0.4, AST 17, ALT 18 L, Alkaline Phosphatase 53, Total Protein 6.9, Albumin 3.2 L 05/22/19 05:50: WBC 5.6 D, RBC 3.37 L, Hgb 11.0 L, Hct 33.1 L, MCV 98.2, MCH 32.6 H, MCHC 33.2, RDW 12.3, Plt Count 170, MPV 9.4 05/22/19 05:50: Sodium 141, Plasma Sodium 141, Potassium 3.9, Chloride 109 H, Carbon Dioxide 25.8, Anion Gap 10.1, BUN 12, Creatinine 0.88, Est GFR (Non-Af Amer) 93, BUN/Creatinine Ratio 13.6, Random Glucose 98, Calcium 8.4 Discharge Location: [facility] [place] Disposition: SNF Condition: Good Level of Care: SNF Discharge Activity: Activity as tolerated Discharge Diet: General/regular food Halfway Therapy: Physical Therapy, Occupation Therapy Referrals: Braeden Booth MD [Staff Physician] - 06/10/19 2:30 pm Problem Oriented Discharge Instructions to Patient/Family: Hip Fracture Additional Patient Instructions (free text): Follow up at Orthopedics Dr Booth's office on June 09 at 2:30pm. Going to [facility] [place] [facility], please fax discharge orders. Instructions: Keep incision covered with dry gauze and tape. Keep dressing dry. PT and OT to evaluate and treat. 6 weeks DVT prophylaxis. Prescriptions (Any new or edited meds): HYDROcodone/ACETAMINOPHEN [[place] 5-325] 1 ea PO Q3H PRN #120 tab PRN Reason: Moderate Pain (Pain Scale 4-6) Transmission Status: Sent to [facility] Sennosides/Docusate Sodium [Senokot-S] 2 tab PO HS #60 tab Transmission Status: Pending to [facility] Rivaroxaban [Xarelto] 20 mg PO DAILY #42 tab Transmission Status: Pending to [facility] Complete Home Medications List: Complete Home Medication List: aspirin 81 mg tablet,delayed release 81 mg PO DAILY 05/01/18 ferrous sulfate 325 mg (65 mg iron) tablet 325 mg PO BID 08/24/18 diflunisal 500 mg tablet 500 mg PO TID #270 tab 02/08/19 lisinopril 40 mg tablet 40 mg PO DAILY #90 tab 02/08/19 pravastatin 80 mg tablet 80 mg PO HS #90 tab 02/08/19 hydrocodone 5 mg-acetaminophen 325 mg tablet 2 tab PO BID PRN #120 tab 05/18/19 Omeprazole 40 mg PO DAILY 05/21/19 Acetaminophen [Tylenol] 1,000 mg PO Q6H PRN tablet 05/24/19 HYDROcodone/ACETAMINOPHEN [[place] 5-325] 1 ea PO Q3H PRN #120 tab 05/24/19 Magnesium Hydroxide [Milk Of Magnesia] 30 ml PO DAILY PRN udc 05/24/19 Rivaroxaban [Xarelto] 20 mg PO DAILY #42 tab 05/24/19 Sennosides/Docusate Sodium [Senokot-S] 2 tab PO HS #60 tab 05/24/19
[2019-05-24 14:12] VITALS: BP 144/80
== END 2019-05-24 14:10 | DRG 481 ==
LOC: ER 23:51 → MS 05-21 01:23
PROVIDERS: ADMIT Family Medicine; ATTEND Family Medicine
DX: I10 Essential (primary) hypertension; R40.2413 Glasgow coma scale score 13-15, at hospital admission; W01.0XXA Fall on same level from slipping, tripping and stumbling without subsequent striking against object, initial encounter; E78.5 Hyperlipidemia, unspecified; K21.9 Gastro-esophageal reflux disease without esophagitis; S72.002A Fracture of unspecified part of neck of left femur, initial encounter for closed fracture; G11.4 Hereditary spastic paraplegia; M48.061 Spinal stenosis, lumbar region without neurogenic claudication
CPT/HCPCS: 36415; 71010; 71045; 73502; 80048; 80053; 85025; 85027; 93005; 97110; 97116; 97163; 97165; 99285; J2405

== ENCOUNTER 2019-05-30 11:51 | Observation (INO) ==
[2019-05-30] MEDS ORDERED: NORMAL SALINE 1,000 ML IV ONE (12:03)
--- NOTE | 2019-05-30 12:21 | ERNOTE ---
Medical Problem HPI - Narrative Date of Service: 05/30/19 - General Chief Complaint: Fever Time Seen by Provider: 05/30/19 11:53 Source: patient, EMS Exam Limitations: no limitations - Immun/Allergies/Home Medications Immunizations: IMMUNIZATION HX Immunizations Up to Date Yes History of Influenza Vaccine No Hx Pneumococcal Vaccination No Allergies/Adverse Reactions: Allergies No Known Allergies Allergy (Verified 05/21/19 00:02) Home Medications: HOME MEDICATIONS aspirin 81 mg tablet,delayed release 81 mg PO DAILY 05/01/18 [Last Taken 05/20/19] ferrous sulfate 325 mg (65 mg iron) tablet 325 mg PO BID 08/24/18 [Last Taken 05/20/19 17:00] diflunisal 500 mg tablet 500 mg PO TID #270 tab 02/08/19 [Last Taken Unknown] lisinopril 40 mg tablet 40 mg PO DAILY #90 tab 02/08/19 [Last Taken 05/20/19] pravastatin 80 mg tablet 80 mg PO HS #90 tab 02/08/19 [Last Taken 05/19/19] Omeprazole 40 mg PO DAILY 05/21/19 [Last Taken 05/20/19 09:00] Acetaminophen [Tylenol] 1,000 mg PO Q6H PRN tab 05/24/19 [Last Taken Unknown] HYDROcodone/ACETAMINOPHEN [[place] 5-325] 1 ea PO Q3H PRN #120 tab 05/24/19 [Last Taken Unknown] Magnesium Hydroxide [Milk Of Magnesia] 30 ml PO DAILY PRN udc 05/24/19 [Last Taken Unknown] Rivaroxaban [Xarelto] 20 mg PO DAILY #42 tab 05/24/19 [Last Taken Unknown] Sennosides/Docusate Sodium [Senokot-S] 2 tab PO HS #60 tab 05/24/19 [Last Taken Unknown] diclofenac sodium 1 % topical gel 2 g TP QID PRN #100 g 05/24/19 [Last Taken Unknown] Polyethylene Glycol 3350 [Miralax] 17 gm PO DAILY 05/30/19 [Last Taken Unknown] Promethazine HCl [Phenergan (Promethazine)] 12.5 mg PO Q4H PRN 05/30/19 [Last Taken Unknown] - History of Present History Narrative: patient presents to ed with c/o fever and hypotension, recently had total hip replacement by dr bah, is in retirement for rehab Timing: constant Severity: moderate Modifying Factors - (Improves): Present: other - nothing Modifying Factors - (Worsens): Present: other - nothing Review of Systems - Review of Systems Constitutional: Present: See HPI, fever, weakness, fatigue, malaise EYE: Present: no symptoms reported ENT: Present: no symptoms reported Respiratory: Present: no symptoms reported Cardiology: Present: no symptoms reported Gastrointestinal/Abdominal: Present: no symptoms reported Genitourinary: Present: no symptoms reported Musculoskeletal: Present: See HPI, muscle pain, muscle stiffness, joint pain Skin: Present: no symptoms reported Neurological: Present: no symptoms reported Endocrine: Present: no symptoms reported Hematologic/Lymphatic: Present: no symptoms reported Psych: Present: no symptoms reported All Other Systems: All systems neg except as marked Medical History (Last Reviewed 05/21/19 @ 10:24 by Matias Benitez CRNA) Lumbar stenosis (Chronic) Onset Date: 07/01/16 [facility]. MRI report-severe spinal stenosis L2-L3 (moderate to severe) and L4-L5 (mild to moderate). Hypertension (Chronic) Onset Date: Unknown Hyperlipidemia (Chronic) Onset Date: Unknown Hereditary spastic paraplegia (Chronic) Onset Date: 02/27/17 GERD (gastroesophageal reflux disease) (Chronic) Onset Date: Unknown Lives with spouse No history of alcohol use Non-tobacco user Use of cane as ambulatory aid Wears glasses Wears hearing aid in both ears Surgical History: Surgical History (Last Reviewed 05/21/19 @ 10:24 by Matias Benitez CRNA) Status post myelogram Onset Date: ~1978 History of colonoscopy Onset Date: 09/15/18 2006-wnl. 09/15/18 Toby-normal. Recheck 5 yrs. History of ear surgery Onset Date: ~1963 left History of surgery on arm Onset Date: Unknown Right. History of tonsillectomy Onset Date: ~1963 Family History: Family History (Last Reviewed 05/21/19 @ 10:24 by Matias Benitez CRNA) Father , age 91 Colon cancer dx age 88 Mother , age 74-heart disease Hypertension CVA (cerebral vascular accident) x2 Heart disease quad bypass Sister Cancer colon ca-dx age 70 Sister , age 57-liver disease No problems noted. Brother , age 70-multiple problems Hypertension Diabetes Brother , age 82-unsure of cause No problems noted. Brother Dementia 1 brother Alive and well 2 brothers Social History: (Last Reviewed 05/21/19 @ 06:46 by Isis Santana RN) Social History: Marital status: household members: spouse number of children: 2 current occupational status: disabled current occupational exposures/hazards: No Service: No Tobacco: Smoking Status: Former smoker Alcohol: alcohol intake: never Substance Use: substance use type: does not use Dietary Habits: caffeine: Yes caffeine comment: Current every day Personal Safety: victim of physical abuse: No victim of emotional abuse: No Physical Exam - Physical Exam General Appearance: Present: no apparent distress, anxious Head Exam: Present: normal inspection, no evidence of injury Eye Exam: Normal inspection: bilateral, PERRL: bilateral, EOMI: bilateral Ears, Nose, Throat: Present: normal ENT inspection, normal pharynx Neck: Present: normal inspection, nontender Respiratory: Present: no respiratory distress, normal breath sounds, no accessory muscle use, chest nontender, lungs clear Cardiovascular/Chest: Present: regular rate, rhythm, no murmur, normal peripheral pulses Gastrointestinal/Abdominal: Present: normal bowel sounds, nontender, nondistended, soft, no organomegaly Back Exam: Present: normal inspection, normal range of motion, no CVA tenderness Extremity Exam: Present: normal inspection, normal except - - healing incision left hip, post hip replacement Neurological Exam: Present: alert, oriented, normal mood/affect, no motor/sensory deficits Skin Exam: Present: normal color, warm/dry Lymphatic Exam: Present: no adenopathy Progress - Date and Time Seen: Date and Time: 05/30/19 17:33 patient improveddiscussed labs and x-rays with patient, to admit to observation - Results and Orders Patient's Lab Results:: I have reviewed the patient's lab results. - Vital Signs Patient's Vital Signs:: I have reviewed the patient's vital signs. Vital Signs: Vital Signs 05/30/19 11:52 Temperature 36.7 C Pulse Rate 86 Respiratory Rate 16 Blood Pressure 94/64 O2 Sat by Pulse Oximetry 98 - EKG EKG #1 EKG: NSR - X-Ray X-Ray #1 X-Ray: chest Interpretation: Discd w/ radiologist - no acute process - Progress/Reassessment Chief Complaint: Fever Progress:: Improved - Transfer of Care Expected Disposition: Admit Plan - Plan Plan: to admit to observation Departure Clinical Impression: Fever, Hypotension, Urinary tract infection - Departure Disposition: Short Term Hospital Inpatient Condition: Serious Instructions: Urinary Tract Infection, Adult, [id number], Fever, Adult, Orthostatic Hypotension Referrals: Joni Dominguez DO [Primary Care Provider] -
[2019-05-30 12:33] LABS: Hemoglobin 12.6 gm/dL (13.5-18.0); Mean Cell Volume 97.6 fl (78-100); Mean Corpuscular Hemoglobin 33.2 pg (27-31); Mean Corpuscular Hgb Conc 34.1 g/dl (32-36); Mean Platelet Volume 9.6 fl (8-11.3); Platelet Count 260 K/mm3 (150-450); Red Blood Count 3.79 M/mm3 (4.7-6.0); Red Cell Distribution Width 12.1 % (11.5-14.0); White Blood Count 18.8 K/mm3 (4.0-10.5)
[2019-05-30 12:41] LABS: Total Cells Counted 100
[2019-05-30 12:54] LABS: Albumin * 2.8 gm/dl (3.4-5.0); Anion Gap 18.7 mmol/L (6.8-13.8); BUN/Creatinine Ratio 22.9 (9.0-21.6); Bilirubin, Total 0.9 mg/dL (0.0-1.1); Calcium * 9.4 mg/dL (7.9-10.9); Carbon Dioxide 23.4 mmol/L (24-32.6); Potassium 5.1 mmol/L (3.4-4.6); Total Protein 7.3 gm/dL (6.2-8.2)
[2019-05-30 13:00] LABS: CRP 36.5 mg/dL (0.0-0.9)
[2019-05-30 13:18] LABS: Lymphocyte 1 % (20-51); Monocyte 11 % (0-9); Neutrophil 88 % (42-75); Neutrophil # 16.5 K/mm3 (1.3-6.0); Platelet Estimate Normal (NORMAL)
[2019-05-30 13:19] LABS: RBC Morphology Normal (NORMAL)
[2019-05-30] MEDS ORDERED: cefTRIAXone SODIUM 1,000 MG/100 ML BAG IV ONE (13:25)
[2019-05-30] MEDS ORDERED: NORMAL SALINE 1,000 ML IV PRN ×3 (13:51→15:56)
[2019-05-30] MEDS: NORMAL SALINE 1,000 ML IV PRN ×2 (17:16→18:15)
[2019-05-30 17:17] LABS: Urine Appearance Slightly Cloudy (CLEAR); Urine Bilirubin Negative (NEGATIVE); Urine Color Yellow; Urine Ketone Negative (NEGATIVE)
[2019-05-30 17:18] LABS: Urine Bacteria 1+; Urine Blood 50 /ul (NEGATIVE); Urine Nitrite Negative (NEGATIVE); Urine Protein Negative (NEGATIVE); Urine RBC 0-5 /hpf (0-5); Urine Specific Gravity 1.025 SP.GR. (1.005-1.030); Urine Urobilinogen Normal (NORMAL); Urine pH 5.5 pH (5.0-7.0)
[2019-05-30] MEDS ORDERED: ACETAMINOPHEN 500 MG TABLET PO PRN (20:58)
[2019-05-30] MEDS ORDERED: PROMETHAZINE HCL 25 MG TABLET PO PRN (20:58)
[2019-05-30] MEDS ORDERED: HYDROcodone/ACETAMINOPHEN 1 EACH TABLET PO PRN (20:58)
[2019-05-30] MEDS ORDERED: MAGNESIUM HYDROXIDE 30 ML UDC PO PRN (22:27)
[2019-05-30] MEDS ORDERED: DICLOFENAC SODIUM 100 APPL TUBE TP PRN (22:27)
[2019-05-30] MEDS ORDERED: RIVAROXABAN 20 MG TABLET PO SCH (23:00)
--- NOTE | 2019-05-30 23:08 | HP ---
Chief Complaint - Chief Complaint Date of Service: 05/30/19 Time of Service: 22:10 Chief Complaint: Fever, hypotension History of Present Illness: Ayo Christy is a 64-year-old male patient of Dr. Dominguez. He recently had a left BRET. senior care called me this afternoon and stated that he was running a temperature of 102 degrees and that his blood pressure dropped from a usual systolic of about 138 down to 102. I recommended he be brought to the hospital for evaluation. Here he was found to have a urinary tract infection. He was given IV fluids IV antibiotics after appropriate cultures were done and admitted for observation status. Medical History (Last Reviewed 05/30/19 @ 19:21 by Neri Grajeda RN) Lumbar stenosis (Chronic) Onset Date: 07/01/16 [facility]. MRI report-severe spinal stenosis L2-L3 (moderate to severe) and L4-L5 (mild to moderate). Hypertension (Chronic) Onset Date: Unknown Hyperlipidemia (Chronic) Onset Date: Unknown Hereditary spastic paraplegia (Chronic) Onset Date: 02/27/17 GERD (gastroesophageal reflux disease) (Chronic) Onset Date: Unknown Lives with spouse No history of alcohol use Non-tobacco user Use of cane as ambulatory aid Wears glasses Wears hearing aid in both ears Surgical History: Surgical History (Last Reviewed 05/21/19 @ 10:24 by Matias Benitez CRNA) Status post myelogram Onset Date: ~1978 History of colonoscopy Onset Date: 09/15/182005-wnl. 09/15/18 Toby-normal. Recheck 5 yrs. History of ear surgery Onset Date: ~1963 left History of surgery on arm Onset Date: Unknown Right. History of tonsillectomy Onset Date: ~1963 Family History: Family History (Last Reviewed 05/21/19 @ 10:24 by Matias Benitez CRNA) Father , age 91 Colon cancer dx age 88 Mother , age 74-heart disease Hypertension CVA (cerebral vascular accident) x2 Heart disease quad bypass Sister Cancer colon ca-dx age 70 Sister , age 57-liver disease No problems noted. Brother , age 70-multiple problems Hypertension Diabetes Brother , age 82-unsure of cause No problems noted. Brother Dementia 1 brother Alive and well 2 brothers Social History: (Last Updated 05/30/19 @ 19:20 by Neri Grajeda RN) Social History: Marital status: household members: spouse number of children: 2 current occupational status: disabled current occupational exposures/hazards: No Service: No Tobacco: Smoking Status: Never smoker Alcohol: alcohol intake: never Substance Use: substance use type: does not use Dietary Habits: caffeine: Yes caffeine comment: Current every day Personal Safety: victim of physical abuse: No victim of emotional abuse: No Review Of Systems (GEN) - Review of Systems Generalized/Overall Review: Present: Weakness, Chills, Fever, Fatigue EENTM: Present: No Symptoms Reported Respiratory: Present: No Symptoms Reported Cardiac: Present: No Symptoms Reported Abdominal: Present: No Symptoms Reported Genitourinary: Present: Urgency, Frequency Musculoskeletal: Present: Joint Pain - Left hip from recent left BRET Neurological: Present: No Symptoms Reported, Other - Hereditary spastic paresis Skin: Present: No Symptoms Reported Endocrine: Present: No Symptoms Reported Misc: All systems neg except as marked Immunizations: IMMUNIZATION HX Immunizations Up to Date Yes History of Influenza Vaccine No Hx Pneumococcal Vaccination No Allergies/Adverse Reactions: Allergies Allergy/AdvReac Type Severity Reaction Status Date / Time No Known Allergies Allergy Verified 05/21/19 00:02 Home Medications: HOME MEDICATIONS aspirin 81 mg tablet,delayed release 81 mg PO DAILY 05/01/18 [Last Taken 05/20/19] ferrous sulfate 325 mg (65 mg iron) tablet 325 mg PO BID 08/24/18 [Last Taken 05/20/19 17:00] diflunisal 500 mg tablet 500 mg PO TID #270 tab 02/08/19 [Last Taken Unknown] lisinopril 40 mg tablet 40 mg PO DAILY #90 tab 02/08/19 [Last Taken 05/20/19] pravastatin 80 mg tablet 80 mg PO HS #90 tab 02/08/19 [Last Taken 05/19/19] Omeprazole 40 mg PO DAILY 05/21/19 [Last Taken 05/20/19 09:00] Acetaminophen [Tylenol] 1,000 mg PO Q6H PRN tab 05/24/19 [Last Taken Unknown] HYDROcodone/ACETAMINOPHEN [[place] 5-325] 1 ea PO Q3H PRN #120 tab 05/24/19 [Last Taken Unknown] Magnesium Hydroxide [Milk Of Magnesia] 30 ml PO DAILY PRN udc 05/24/19 [Last Taken Unknown] Rivaroxaban [Xarelto] 20 mg PO DAILY #42 tab 05/24/19 [Last Taken Unknown] Sennosides/Docusate Sodium [Senokot-S] 2 tab PO HS #60 tab 05/24/19 [Last Taken Unknown] diclofenac sodium 1 % topical gel 2 g TP QID PRN #100 g 05/24/19 [Last Taken Unknown] Polyethylene Glycol 3350 [Miralax] 17 gm PO DAILY 05/30/19 [Last Taken Unknown] Promethazine HCl [Phenergan (Promethazine)] 12.5 mg PO Q4H PRN 05/30/19 [Last Taken Unknown] Exam - Exam Vital Signs: Vital Signs - Last Taken Temp 37.6 C 05/30/19 18:49 Pulse 89 05/30/19 18:49 Resp 16 05/30/19 18:49 BP 139/72 05/30/19 18:49 Pulse Ox 95 05/30/19 18:49 Constitutional: Present: Alert, Oriented x3, Cooperative, Well developed, Well nourished, No distress ENT Exam: Present: normal ENT inspection, hearing grossly normal Eye Exam: bilateral eye: normal inspection, PERRL, EOMI Neck: Present: non-tender, full range of motion Back Exam: Present: normal inspection, no CVA tenderness, no vertebral tenderness Breasts: Present: Exam deferred Respiratory: Present: chest non-tender, lungs clear, normal breath sounds, no respiratory distress, no accessory muscle use Cardiovascular/Chest: Present: normal peripheral pulses, regular rate, rhythm, no chest tenderness, no edema, no gallop, no JVD, no murmur Peripheral Pulses: carotid (R): 2+, carotid (L): 2+, radial (R): 2+, radial (L): 2+ Abdomen: Present: Normal bowel sounds, soft, nontender, nondistended, no rebound tenderness, no hepatospenomegaly, no masses /Rectal: Present: Exam deferred, External genitalia normal Extremity: Present: normal range of motion, non-tender, normal inspection, no pedal edema, no calf tenderness, normal capillary refill Skin Exam: Present: normal color, warm/dry, no cyanosis Lymphatic: Present: no adenopathy Neurologic: Present: [place] maori II-XII nml as tested, normal cerebellar test, no motor/sensory deficits, alert, normal mood/affect, other - Involuntary muscle spasms Appearance: Present: appropriate appearance, appropriate insight, neat, no memory impairment Eye contact: Present: cooperative, good eye contact, normal speech Thoughts: Present: normal thought pattern, no apparent hallucination Diagnostic Studies: Abnormal Lab Results 05/30/19 05/30/19 05/30/19 Range/Units 12:20 12:20 12:20 WBC 18.8 H (4.0-10.5) K/mm3 RBC 3.79 L (4.7-6.0) M/mm3 Hgb 12.6 L (13.5-18.0) gm/dL Hct 37.0 L (42.0-52.0) % MCH 33.2 H (27-31) pg Neutrophils % (Manual) 88 H (42-75) % Lymphocytes % (Manual) 1 L (20-51) % Monocytes % (Manual) 11 H (0-9) % Neutrophils # (Manual) 16.5 H (1.3-6.0) K/mm3 Lymphocytes # (Manual) 0.2 L (1.5-3.5) k/mm3 Monocytes # (Manual) 2.1 H (0.0-1.0) k/mm3 Potassium 5.1 H D (3.4-4.6) mmol/L Carbon Dioxide 23.4 L (24-32.6) mmol/L Anion Gap 18.7 H (6.8-13.8) mmol/L BUN 46 H D (6-23) mg/dL Creatinine 2.01 H D (0.4-1.4) mg/dL Est GFR (Non-Af Amer) 36 L D (60-130) mL/min BUN/Creatinine Ratio 22.9 H (9.0-21.6) C-Reactive Prot, Quant 36.5 H (0.0-0.9) mg/dL Albumin 2.8 L (3.4-5.0) gm/dl Procalcitonin 29.72 H (0.05-0.50) ng/mL Urine Blood (NEGATIVE) /ul Ur Leukocyte Esterase (NEGATIVE) /ul Urine WBC (0-5) /hpf Urine Bacteria (NONE) 05/30/19 Range/Units 16:39 WBC (4.0-10.5) K/mm3 RBC (4.7-6.0) M/mm3 Hgb (13.5-18.0) gm/dL Hct (42.0-52.0) % MCH (27-31) pg Neutrophils % (Manual) (42-75) % Lymphocytes % (Manual) (20-51) % Monocytes % (Manual) (0-9) % Neutrophils # (Manual) (1.3-6.0) K/mm3 Lymphocytes # (Manual) (1.5-3.5) k/mm3 Monocytes # (Manual) (0.0-1.0) k/mm3 Potassium (3.4-4.6) mmol/L Carbon Dioxide (24-32.6) mmol/L Anion Gap (6.8-13.8) mmol/L BUN (6-23) mg/dL Creatinine (0.4-1.4) mg/dL Est GFR (Non-Af Amer) (60-130) mL/min BUN/Creatinine Ratio (9.0-21.6) C-Reactive Prot, Quant (0.0-0.9) mg/dL Albumin (3.4-5.0) gm/dl Procalcitonin (0.05-0.50) ng/mL Urine Blood 50 H (NEGATIVE) /ul Ur Leukocyte Esterase 25 H (NEGATIVE) /ul Urine WBC 5-10 H (0-5) /hpf Urine Bacteria 1+ H (NONE) Laboratory Results WBC 18.8 K/mm3 (4.0-10.5) H 05/30/19 12:20 RBC 3.79 M/mm3 (4.7-6.0) L 05/30/19 12:20 Hgb 12.6 gm/dL (13.5-18.0) L 05/30/19 12:20 Hct 37.0 % (42.0-52.0) L 05/30/19 12:20 MCV 97.6 fl (78-100) 05/30/19 12:20 MCH 33.2 pg (27-31) H 05/30/19 12:20 MCHC 34.1 g/dl (32-36) 05/30/19 12:20 RDW 12.1 % (11.5-14.0) 05/30/19 12:20 Plt Count 260 K/mm3 (150-450) 05/30/19 12:20 MPV 9.6 fl (8-11.3) 05/30/19 12:20 Neutrophils % (Manual) 88 % (42-75) H 05/30/19 12:20 Lymphocytes % (Manual) 1 % (20-51) L 05/30/19 12:20 Monocytes % (Manual) 11 % (0-9) H 05/30/19 12:20 Neutrophils # (Manual) 16.5 K/mm3 (1.3-6.0) H 05/30/19 12:20 Lymphocytes # (Manual) 0.2 k/mm3 (1.5-3.5) L 05/30/19 12:20 Monocytes # (Manual) 2.1 k/mm3 (0.0-1.0) H 05/30/19 12:20 Platelet Estimate Normal (NORMAL) 05/30/19 12:20 RBC Morphology Normal (NORMAL) 05/30/19 12:20 Sodium 136 mmol/L (132-142) 05/30/19 12:20 Plasma Sodium 136 mmol/L (130-142) 05/30/19 12:20 Potassium 5.1 mmol/L (3.4-4.6) H D 05/30/19 12:20 Chloride 99 mmol/L (97-106) 05/30/19 12:20 Carbon Dioxide 23.4 mmol/L (24-32.6) L 05/30/19 12:20 Anion Gap 18.7 mmol/L (6.8-13.8) H 05/30/19 12:20 BUN 46 mg/dL (6-23) H D 05/30/19 12:20 Creatinine 2.01 mg/dL (0.4-1.4) H D 05/30/19 12:20 Est GFR (Non-Af Amer) 36 mL/min (60-130) L D 05/30/19 12:20 BUN/Creatinine Ratio 22.9 (9.0-21.6) H 05/30/19 12:20 Random Glucose 106 mg/dL (70-110) 05/30/19 12:20 Lactic Acid, Venous 1.4 mmol/L (0.4-2.0) 05/30/19 12:20 Calcium 9.4 mg/dL (7.9-10.9) 05/30/19 12:20 Calcium Adj for Albumin 10.0 mg/dL (8.4-10.2) 05/30/19 12:20 Total Bilirubin 0.9 mg/dL (0.0-1.1) 05/30/19 12:20 AST 16 U/L (0-48) 05/30/19 12:20 ALT 21 U/L (19-67) 05/30/19 12:20 Alkaline Phosphatase 53 U/L (50-170) 05/30/19 12:20 C-Reactive Prot, Quant 36.5 mg/dL (0.0-0.9) H 05/30/19 12:20 Total Protein 7.3 gm/dL (6.2-8.2) 05/30/19 12:20 Albumin 2.8 gm/dl (3.4-5.0) L 05/30/19 12:20 Procalcitonin 29.72 ng/mL (0.05-0.50) H 05/30/19 12:20 Urine Color Yellow 05/30/19 16:39 Urine Appearance Slightly cloudy (CLEAR) 05/30/19 16:39 Urine pH 5.5 pH (5.0-7.0) 05/30/19 16:39 Ur Specific [place] 1.025 SP.GR. (1.005-1.030) 05/30/19 16:39 Urine Protein Negative mg/dL (NEGATIVE) 05/30/19 16:39 Urine Glucose (UA) Negative mg/dL (NEGATIVE) 05/30/19 16:39 Urine Ketones Negative mg/dL (NEGATIVE) 05/30/19 16:39 Urine Blood 50 /ul (NEGATIVE) H 05/30/19 16:39 Urine Nitrate Negative (NEGATIVE) 05/30/19 16:39 Urine Bilirubin Negative mg/dl (NEGATIVE) 05/30/19 16:39 Urine Urobilinogen Normal EU/dl (NORMAL) 05/30/19 16:39 Ur Leukocyte Esterase 25 /ul (NEGATIVE) H 05/30/19 16:39 Urine RBC 0-5 /hpf (0-5) 05/30/19 16:39 Urine WBC 5-10 /hpf (0-5) H 05/30/19 16:39 Ur Epithelial Cells 0-5 /hpf (0-5) 05/30/19 16:39 Urine Bacteria 1+ (NONE) H 05/30/19 16:39 Urine Culture Comments Culture to follow 05/30/19 16:39 Influenza Type A Ag Negative (NEGATIVE) 05/30/19 12:20 Influenza Type B Ag Negative (NEGATIVE) 05/30/19 12:20 Assessment/Plan - Narrative Narrative: 1. Continue IV antibiotics 2. Repeat lab tomorrow morning 3. Check three-way blood pressure tomorrow morning 4. Dr. Dominguez will assume care tomorrow morning - Assessment/Plan (1) History of total left hip arthroplasty Problem: Acute (2) Urinary tract infection Problem: Acute Qualifiers: Urinary tract infection type: acute pyelonephritis Qualified Code(s): N10 - Acute pyelonephritis (3) Hypertension Problem: Chronic Qualifiers: Hypertension type: essential hypertension Qualified Code(s): I10 - Essential (primary) hypertension (4) Hereditary spastic paraplegia Problem: Chronic (5) Febrile illness Problem: Acute
[2019-05-31] MEDS: NORMAL SALINE 1,000 ML IV PRN (01:34)
[2019-05-31 06:51] LABS: Hemoglobin 10.3 gm/dL (13.5-18.0); Mean Corpuscular Hemoglobin 32.9 pg (27-31); Mean Corpuscular Hgb Conc 33.2 g/dl (32-36); Mean Platelet Volume 9.6 fl (8-11.3); Neutrophil # 9.8 K/mm3 (1.3-6.0); Neutrophil % 80.9 % (42-75.0); Platelet Count 197 K/mm3 (150-450); Red Blood Count 3.13 M/mm3 (4.7-6.0); White Blood Count 12.1 K/mm3 (4.0-10.5)
[2019-05-31] MEDS ORDERED: PANTOPRAZOLE SODIUM 40 MG TABLET.EC PO SCH (07:00)
[2019-05-31 07:05] LABS: Albumin * 2.1 gm/dl (3.4-5.0); Anion Gap 12.6 mmol/L (6.8-13.8); Bilirubin, Total 0.5 mg/dL (0.0-1.1); Ca. Corrected For Albumin 9.5 mg/dL (8.4-10.2); Calcium * 8.3 mg/dL (7.9-10.9); Carbon Dioxide 21.6 mmol/L (24-32.6); Potassium 4.2 mmol/L (3.4-4.6); Total Protein 5.8 gm/dL (6.2-8.2)
[2019-05-31] MEDS: DIFLUNISAL 500 MG PO SCH ×2 (08:32→13:03)
[2019-05-31] MEDS ORDERED: ASPIRIN 81 MG TABLET.DR PO SCH (09:00)
[2019-05-31] MEDS ORDERED: FERROUS SULFATE 325 MG TABLET PO SCH (09:00)
[2019-05-31] MEDS ORDERED: LISINOPRIL 40 MG TABLET PO SCH (09:00)
[2019-05-31] MEDS ORDERED: POLYETHYLENE GLYCOL 3350 17 GM PACKET PO SCH (09:00)
--- NOTE | 2019-05-31 10:48 | DS ---
(1) History of total left hip arthroplasty Problem: Acute (2) Prerenal azotemia Problem: Resolved (3) Urinary tract infection Problem: Acute Qualifiers: Urinary tract infection type: acute pyelonephritis Qualified Code(s): N10 - Acute pyelonephritis (4) Hypertension Problem: Chronic Qualifiers: Hypertension type: essential hypertension Qualified Code(s): I10 - Essential (primary) hypertension (5) Hereditary spastic paraplegia Problem: Chronic (6) Febrile illness Problem: Acute Date of Discharge:: 05/31/19 Hospital Course: Ayo Christy is a 64-year-old male admitted through ER with diagnosis of urinary tract infection, fever with chills, leukocytosis, nausea with dry heaves, and being status post left total hip arthroplasty postop day #8. His surgical wound site is clean and there is no evidence of infection. The dressing has not been changed since surgery. There is some dried blood on the dressing but there is no purulence. He has received IV Rocephin and IV fluids. His white count has dropped from 18,000-12,000. The urine culture is no growth. The urinalysis had some soft signs of urinary tract infection which is how the original diagnosis came about. Chest x-ray was clear. Chemistries showed prerenal azotemia with EGFR of 36 which corrected to 80 this morning with rehydration. All of his renal studies have returned to normal. The exact nidus of infection is not known at this time but he has responded well to Rocephin as an antibiotic. He will be discharged back to the [facility]. Procedures Performed: none Results and Findings: Pending Mircobiology Results 05/30/19 16:45 Urine,Catheterized Urine Culture - Preliminary No Growth Lab Pending Results 05/30/19 12:20: WBC 18.8 H, RBC 3.79 L, Hgb 12.6 L, Hct 37.0 L, MCV 97.6, MCH 33.2 H, MCHC 34.1, RDW 12.1, Plt Count 260, MPV 9.6, Neutrophils % (Manual) 88 H, Lymphocytes % (Manual) 1 L, Monocytes % (Manual) 11 H, Neutrophils # (Manual) 16.5 H, Lymphocytes # (Manual) 0.2 L, Monocytes # (Manual) 2.1 H, Platelet Estimate Normal, RBC Morphology Normal 05/30/19 12:20: Sodium 136, Plasma Sodium 136, Potassium 5.1 H D, Chloride 99, Carbon Dioxide 23.4 L, Anion Gap 18.7 H, BUN 46 H D, Creatinine 2.01 H D, Est GFR (Non-Af Amer) 36 L D, BUN/Creatinine Ratio 22.9 H, Random Glucose 106, Calcium 9.4, Calcium Adj for Albumin 10.0, Total Bilirubin 0.9, AST 16, ALT 21, Alkaline Phosphatase 53, C-Reactive Prot, Quant 36.5 H, Total Protein 7.3, Albumin 2.8 L 05/30/19 12:20: Lactic Acid, Venous 1.4 05/30/19 12:20: Procalcitonin 29.72 H 05/30/19 12:20: Influenza Type A Ag Negative, Influenza Type B Ag Negative 05/30/19 16:39: Urine Color Yellow, Urine Appearance Slightly cloudy, Urine pH 5.5, Ur Specific [place] 1.025, Urine Protein Negative, Urine Glucose (UA) Negative, Urine Ketones Negative, Urine Blood 50 H, Urine Nitrate Negative, Urine Bilirubin Negative, Urine Urobilinogen Normal, Ur Leukocyte Esterase 25 H, Urine RBC 0-5, Urine WBC 5-10 H, Ur Epithelial Cells 0-5, Urine Bacteria 1+ H, Urine Culture Comments Culture to follow 05/31/19 06:45: WBC 12.1 H D, RBC 3.13 L, Hgb 10.3 L, Hct 31.0 L, MCV 99.0, MCH 32.9 H, MCHC 33.2, RDW 12.0, Plt Count 197, MPV 9.6, Immature Gran % (Auto) 2.00 H, Immature Gran # (Auto) 0.24 H, Neutrophils % 80.9 H, Lymphocytes % 9.8 L, Monocytes % 6.9, Eosinophils % 0.2, Basophils % 0.2, Nucleated RBC % 0.0, Neutrophils # 9.8 H, Lymphocytes # 1.18 L, Monocytes # 0.8, Eosinophils # 0.0, Absolute Basophils 0.0 05/31/19 06:45: Sodium 136, Plasma Sodium 136, Potassium 4.2, Chloride 106, Carbon Dioxide 21.6 L, Anion Gap 12.6, BUN 23, Creatinine 1.00, Est GFR (Non-Af Amer) 80 D, BUN/Creatinine Ratio 23.0 H, Random Glucose 97, Calcium 8.3, Calcium Adj for Albumin 9.5, Total Bilirubin 0.5, AST 16, ALT 16 L, Alkaline Phosphatase 57, Total Protein 5.8 L, Albumin 2.1 L Discharge Location: [facility] Disposition: SNF Condition: Good Face to Face Encounter completed per [facility] Guidelines: No Level of Care: SNF Discharge Activity: Activity as tolerated, Weight bearing Discharge Diet: General/regular food Detention Therapy: Physical Therapy Additional Patient Instructions (free text): See Dr. Dominguez in the office in 1 to 2 weeks. Prescriptions (Any new or edited meds): Cefdinir [Omnicef] 300 mg PO Q12H #20 cap Complete Home Medications List: Complete Home Medication List: aspirin 81 mg tablet,delayed release 81 mg PO DAILY 05/01/18 ferrous sulfate 325 mg (65 mg iron) tablet 325 mg PO BID 08/24/18 diflunisal 500 mg tablet 500 mg PO TID #270 tab 02/08/19 lisinopril 40 mg tablet 40 mg PO DAILY #90 tab 02/08/19 pravastatin 80 mg tablet 80 mg PO HS #90 tab 02/08/19 Omeprazole 40 mg PO DAILY 05/21/19 Acetaminophen [Tylenol] 1,000 mg PO Q6H PRN tab 05/24/19 HYDROcodone/ACETAMINOPHEN [[place] 5-325] 1 ea PO Q3H PRN #120 tab 05/24/19 Magnesium Hydroxide [Milk Of Magnesia] 30 ml PO DAILY PRN udc 05/24/19 Rivaroxaban [Xarelto] 20 mg PO DAILY #42 tab 05/24/19 Sennosides/Docusate Sodium [Senokot-S] 2 tab PO HS #60 tab 05/24/19 diclofenac sodium 1 % topical gel 2 g TP QID PRN #100 g 05/24/19 Polyethylene Glycol 3350 [Miralax] 17 gm PO DAILY 05/30/19 Promethazine HCl [Phenergan (Promethazine)] 12.5 mg PO Q4H PRN 05/30/19 Cefdinir [Omnicef] 300 mg PO Q12H #20 cap 05/31/19
[2019-05-31 13:13] VITALS: BP 128/76
[2019-05-31] MEDS ORDERED: ROSUVASTATIN CALCIUM 10 MG TABLET PO SCH (21:00)
[2019-05-31] MEDS ORDERED: SENNOSIDES/DOCUSATE SODIUM 1 TAB TABLET PO SCH (21:00)
== END 2019-05-31 13:30 ==
LOC: ER 11:51 → MS 11:51
PROVIDERS: ADMIT Family Medicine; ATTEND Family Medicine
DX: E78.5 Hyperlipidemia, unspecified; I10 Essential (primary) hypertension; M48.061 Spinal stenosis, lumbar region without neurogenic claudication; N10 Acute pyelonephritis; R50.9 Fever, unspecified; Z96.649 Presence of unspecified artificial hip joint; I95.9 Hypotension, unspecified; G11.4 Hereditary spastic paraplegia
CPT/HCPCS: 36415; 71020; 71046; 73502; 80053; 81001; 83605; 84145; 85025; 86140; 87040; 87081; 87086; 87400; 87449; 93005; 96365; 96366; 99284; 99285; G0378